=== PATIENT | male | born 1985 | race Two or more races ===

== ENCOUNTER 2017-09-06 14:38 | Emergency (ER) | payer OTHER ==
--- NOTE | 2017-09-06 14:54 | EDPHY ---
H & P Time Seen by Provider: 09/06/17 14:51 HPI/ROS: Chief Complaint: Finger laceration HPI: 32-year-old male sustained a laceration to the dorsal aspect of his left 4th finger from a knife at work. He is up-to-date in his tetanus. No other complaints. Family History: non-contributory Physical Exam: General: Awake, alert, no acute distress Left hand: He has a 1 cm laceration over the dorsal aspect of the middle phalanx of his 4th finger. It extends subcutaneous only. He has full flexion extension strength. Sensations intact and the lateral medial aspects. Skin: No rash Constitutional: Initial Vital Signs Temperature (C) 36.5 C 09/06/17 14:49 Heart Rate 82 09/06/17 14:49 Respiratory Rate 18 09/06/17 14:49 Blood Pressure 179/119 H 09/06/17 14:49 O2 Sat (%) 98 09/06/17 14:49 O2 Delivery Mode Room Air Allergies/Adverse Reactions: No Known Allergies Allergy (Unverified 09/06/17 14:46) Home Medications: Medication Instructions Recorded Amlodipine Besylate 09/06/17 Losartan Potassium 09/06/17 Spironolactone 09/06/17 Medical Decision Making Procedures: Procedure: Digital nerve block, indication is digit anesthesia for procedure. Patient was prepped with chlorhexidine Skin prep. 0.5% bupivacaine was infiltrated in the medial in lateral aspects for with a dorsal approach at the base of the proximal phalanx with blockage of both dorsal and volar nerves. Total of 1 mL was infiltrated. There were no complications. Procedure was performed by myself. Procedure: Laceration repair. Verbal consent was obtained from the patient. The 1 cm laceration on the dorsal left 4th finger was anesthetized in the usual fashion. The wound was irrigated, draped and explored to its base with a gloved finger. There were no deep structures involved. No tendon injury was identified. The wound was repaired with 3, 5-chills Ethilon simple interrupted sutures. The wound repair was uncomplicated. The procedure was performed by myself. Departure - Departure Disposition: Home, Routine, Self-Care Clinical Impression: Laceration Condition: Good Instructions: Finger Laceration (ED) Additional Instructions: Sutures need to be removed in 10 days. Return to the emergency depart for increasing redness, streaking up the hand, discharge from the wound, or any other concerns. You can return here follow up with miriam grossman for suture removal. Referrals: Yon Marks MD [Primary Care Provider] - As per Instructions
[2017-09-06 14:56] VITALS: BP 179/119; PULSE 82; RESP 18; TEMP 97.7; O2SAT 98
== END 2017-09-06 15:10 | disposition home or self-care (01) ==
LOC: CED 14:38
PROC: 0HQGXZZ Repair Left Hand Skin, External Approach (ICD-10-PCS; principal; 2017-09-06)
DX: S61.215A Laceration without foreign body of left ring finger without damage to nail, initial encounter (principal); W26.0XXA Contact with knife, initial encounter; Y92.69 Other specified industrial and construction area as the place of occurrence of the external cause; Y99.0 Civilian activity done for income or pay; Y93.89 Activity, other specified